=== PATIENT | female | born 1950 | race African-American/Black ===

== ENCOUNTER 2017-03-16 12:44 | Day surgery (SDC) | payer OTHER, MEDICAID ==
[2017-03-16] MEDS ORDERED: NALOXONE HCL 0.4 MG/ML INJ ONE (13:09)
[2017-03-16] MEDS ORDERED: fentaNYL 100 MCG/2 ML INJ ONE (13:09)
[2017-03-16] MEDS ORDERED: MIDAZOLAM 2 MG/2 ML VIAL ONE (13:09)
[2017-03-16] MEDS ORDERED: FLUMAZENIL 0.5 MG/5 ML MDV IVP ONE (13:09)
[2017-03-16] MEDS ORDERED: NS 1,000 ML IV SCH (14:00)
[2017-03-16] MEDS ORDERED: TRIAMCINOLONE ACETONIDE 200 MG/5 ML MDV IM ONE (15:14)
[2017-03-16] MEDS ORDERED: IOPAMIDOL (ISOVUE-M 300) 15 ML VIAL ONE (15:14)
[2017-03-16 15:38] VITALS: PULSE 80
[2017-03-16 16:05] VITALS: BP 159/73
[2017-03-16 16:13] VITALS: RESP 13; O2SAT 97
== END 2017-03-16 16:26 | disposition home or self-care (01) ==
LOC: FIMAGING 12:44
PROVIDERS: ATTEND Physician Assistant
PROC: 3E0T3BZ Introduction of Anesthetic Agent into Peripheral Nerves and Plexi, Percutaneous Approach (ICD-10-PCS; principal; 2017-03-16 15:25)
PROC: 3E0T33Z Introduction of Anti-inflammatory into Peripheral Nerves and Plexi, Percutaneous Approach (ICD-10-PCS; principal; 2017-03-16 15:25)
DX: M51.26 Other intervertebral disc displacement, lumbar region (principal); M79.605 Pain in left leg; M54.9 Dorsalgia, unspecified
CPT/HCPCS: J2250; J2310; J3010; J3301; Q9967

== ENCOUNTER → 2017-06-04 | Outpatient (CLI) | payer OTHER, MEDICAID | LOC: FIMAGING 17:26 | PROVIDERS: ATTEND Podiatrist | DX: M79.89 Other specified soft tissue disorders (principal); M79.605 Pain in left leg ==